=== PATIENT | female | born 1980 | race Caucasian/White ===

== ENCOUNTER 2016-08-02 09:50 | Emergency (ER) ==
--- NOTE | 2016-08-02 10:34 | PROVIDER DOCUMENTATION ---
HPI-General Adult - General Chief Complaint: N/V/D Stated Complaint: NAUSEA,DIARRHEA WITH BLOOD Time Seen by Provider: 08/02/16 10:17 Source: patient Allergies/Adverse Reactions: Patient Allergies Allergy/AdvReac Type Severity Reaction Status Date / Time Penicillins Allergy RASH Verified 08/02/16 11:06 Home Medications: Home Medication List Medication Instructions Recorded Confirmed Last Taken Type No Home Medications 08/02/16 08/02/16 Unknown History - History of Present Illness -Gen Adult Nature of Presenting Problems: 36 aguila WF has been having blood mixed in with stool and and intramenstraul bleeding as well. Her last normal period ended two weeks ago. Denies any bleeding dyscrasia. Onset/Duration: reports: 2 days ago Timing: reports: still present Context/Activities at Onset: reports: light activity Modifying Factors: improves with: nothing Associated Symptoms: reports: denies symptoms Recently seen or treated by another doctor?: No Review of Systems - Adult - REVIEW OF SYSTEMS - ADULT Constitutional: reports: no symptoms reported Eyes: reports: no symptoms reported Ears, Nose, Mouth & Throat: reports: no symptoms reported Cardiovascular: reports: no symptoms reported Respiratory: reports: no symptoms reported Gastrointestinal: reports: see HPI Genitourinary: reports: see HPI Musculoskeletal: reports: no symptoms reported Integumentary: reports: no symptoms reported Neurological: reports: no symptoms reported Psychiatric: reports: no symptoms reported Endocrine: reports: no symptoms reported Hematologic/Lymphatic: reports: no symptoms reported, see HPI Allergic/Immunologic: reports: no symptoms reported All Other Systems: Reviewed and Negative Past History - Adult - PAST MEDICAL HISTORY-ADULT Review of Records: reports: Nursing Assessment Review, Medications Reviewed Major Childhood Illnesses: reports: denies history Gastrointestinal: reports: denies history () Genitourinary: reports: denies history Musculoskeletal: reports: denies history - PRIOR SURGERIES/PROCEDURES Surgical/Procedure History: reports: none - FAMILY HISTORY Family History: reviewed, not pertinent - SOCIAL HISTORY Living Situation: alone 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 [employer] Physical Exam-General - PHYSICAL EXAM-ADULT Initial Vital Signs Reviewed: Yes - CONSTITUTIONAL General Appearance: appears well, alert, no apparent distress - EYES Eyes: PERRL/EOMI, pink conjunctivae - HEAD, EARS, NOSE, MOUTH & THROAT HENMT: normocephalic/atraumatic, moist mucous membranes, normal ENT inspection - NECK Neck: non-tender - RESPIRATORY Respiratory: chest non-tender, lungs clear, normal breath sounds - CARDIOVASCULAR Cardiovascular: normal peripheral pulses, regular rate, rhythm, no edema, no gallop - GASTROINTESTINAL (ABDOMEN) Abdominal Exam: normal bowel sounds, non tender, soft, no organomegaly - GENITOURINARY Female Genitalia/Pelvic Exam: external exam normal, no cerv. motion tender, cervicitis, herpes-like ulcerations. negative: tender w/ cervical motion, tender adnexa, tender uterus Rectal Exam: other (Tight rectal stricture, unable to pass finger into rectum) Progress - PLAN OF CARE/RESULTS Progress/Plan/Lab Results: Laboratory Tests 08/02/16 08/02/16 08/02/16 10:40 10:40 10:40 PT 10.4 INR 1.02 Sodium 134 L Potassium 3.9 Chloride 96 L Carbon Dioxide 20 L Anion Gap 18 BUN 8 Creatinine 0.7 Estimated GFR/1.73 m2 > 60 BUN/Creatinine Ratio 11 Glucose 92 Calculated Osmolality 266 Calcium 8.7 L Total Bilirubin 0.38 AST 53 H ALT < 5 L Alkaline Phosphatase 92 Total Protein 7.1 Albumin 4.0 Globulin 3.1 Albumin/Globulin Ratio 1.3 Urine Source CLEAN CATCH Urine Color STRAW Urine Turbidity CLEAR Urine pH 5.0 Ur Specific [place] 1.001 Urine Protein NEGATIVE Ur Glucose (Stick) NEGATIVE Ur Ketones (Stick) NEGATIVE Urine Blood TRACE A Urine Nitrite NEGATIVE Urine Bilirubin NEGATIVE Urobilinogen Dipstick NORMAL Urine Leukocytes NEGATIVE Urine WBC (Auto) <10 Urine RBC (Auto) <10 U Epithel Cells (Auto) <10 Urine Bacteria (Auto) 1+ Orders Category Date Time Status BLOOD CULTURE [BLDCUL] Stat Lab 08/02/16 10:40 Results COMPREHENSIVE METABOLIC PANEL [CHEM] Stat Lab 08/02/16 10:40 Completed PROTIME WITH INR [COAG] Stat Lab 08/02/16 10:40 Completed UA NIMS W/REFLEX CULT [URINALYSIS] Stat Lab 08/02/16 10:40 Completed Vital Signs Temp Pulse Resp BP Pulse Ox 08/02/16 09:56 97.7 F 108 H 16 192/97 100 Penicillins Allergy (Verified 08/02/16 11:06) RASH No Home Medications 08/02/16 I&O 08/01/16 08/02/16 08/03/16 06:59 06:59 06:59 Output Total 50 Balance -50 Laboratory 08/02/16 08/02/16 08/02/16 10:40 10:40 10:40 PT 10.4 INR 1.02 Sodium 134 L Potassium 3.9 Chloride 96 L Carbon Dioxide 20 L Anion Gap 18 BUN 8 Creatinine 0.7 Estimated GFR/1.73 m2 > 60 BUN/Creatinine Ratio 11 Glucose 92 Calculated Osmolality 266 Calcium 8.7 L Total Bilirubin 0.38 AST 53 H ALT < 5 L Alkaline Phosphatase 92 Total Protein 7.1 Albumin 4.0 Globulin 3.1 Albumin/Globulin Ratio 1.3 Urine Source CLEAN CATCH Urine Color STRAW Urine Turbidity CLEAR Urine pH 5.0 Ur Specific [place] 1.001 Urine Protein NEGATIVE Ur Glucose (Stick) NEGATIVE Ur Ketones (Stick) NEGATIVE Urine Blood TRACE A Urine Nitrite NEGATIVE Urine Bilirubin NEGATIVE Urobilinogen Dipstick NORMAL Urine Leukocytes NEGATIVE Urine WBC (Auto) <10 Urine RBC (Auto) <10 U Epithel Cells (Auto) <10 Urine Bacteria (Auto) 1+ Departure - Departure Time of Disposition Order: 12:31 DIAGNOSIS: Abnormal digital rectal exam, Vagina bleeding, Cervicitis and endocervicitis Disposition: HOME 01 Certified Medical Emergency: Emergent Condition: Good Referrals: None,PCP [Primary Care Provider] - Jose Abraham MD [STAFF PHYSICIAN] -
[2016-08-02 11:08] LABS: URINE CULTURE NEEDED? NO; URINE MICRO REVIEW NEEDED? NO; URINE SOURCE CLEAN CATCH
[2016-08-02 11:22] LABS: BILIRUBIN URINE NEGATIVE (NEGATIVE); BLOOD URINE TRACE (NEGATIVE); COLOR STRAW; GLUCOSE URINE NEGATIVE (NEGATIVE); LEUKOCYTES URINE NEGATIVE (NEGATIVE); NITRITE URINE NEGATIVE (NEGATIVE); PROTEIN URINE NEGATIVE (NEGATIVE); SP GRAVITY URINE 1.001; TURBIDITY URINE CLEAR (CLEAR); UROBILINOGEN URINE NORMAL (NORMAL)
[2016-08-02 11:23] LABS: UR EPITHELIAL CELLS <10 /HPF (<10); URINE BACTERIA 1+ /HPF; URINE RBC <10 /HPF (<10); URINE WBC <10 /HPF (<10)
[2016-08-02 11:40] LABS: AGAP 18; ALKALINE PHOSPHATASE 92 U/L (32-104); BUN 8 mg/dL (8-22); CALCIUM 8.7 mg/dL (8.8-10.2); CHLORIDE 96 mmol/L (98-107); COSMO 266; GOT 53 U/L (10-30); GPT < 5 U/L (10-36); POTASSIUM 3.9 mmol/L (3.5-5.1); SODIUM 134 mmol/L (136-145); TCO2 20 mmol/L (25-35); TOTAL BILIRUBIN 0.38 mg/dL (0.20-1.00); TOTAL PROTEIN 7.1 g/dL (6.3-8.3)
[2016-08-02 12:01] LABS: INR 1.02; PROTIME 10.4 Seconds (9.2-11.7)
[2016-08-02 12:48] LABS: MANUAL DIFF NEEDED? NO
[2016-08-02 12:50] LABS: BASO% 0.3 % (0.0-0.8); EOS# 0.07 X1000 (0.0-0.7); HEMATOCRIT 39.5 % (37.0-47.0); HEMOGLOBIN 13.3 g/dL (12.0-16.0); LYMPH# 1.37 X1000 (1.2-3.4); LYMPH% 19.5 % (20.5-51.1); MCH 31.1 PG (27-31); MCHC 33.7 g/dL (33-37); MCV 92.3 FL (81-99); MONO# 0.38 X1000 (0.11-0.59); MONO% 5.4 % (1.7-9.3); MPV 11.4 FL (7.4-10.4); NEUT% 73.8 % (42.2-75.2); PLT 170 X1000 (130-400); RBC 4.28 XMIL (4.2-5.4)
[2016-08-02 14:16] VITALS: BP 189/92
== END 2016-08-02 14:14 | disposition home or self-care (01) ==
LOC: ED 09:50
DX: N72 Inflammatory disease of cervix uteri (principal); N93.9 Abnormal uterine and vaginal bleeding, unspecified; K92.1 Melena
CPT/HCPCS: 80053; 81001; 85025; 85610; 87040; 99284